=== PATIENT | female | born 1985 | race Caucasian/White ===

== ENCOUNTER 2017-11-04 17:05 | Inpatient (IN) | payer OTHER ==
[~2017-11-04] VITALS: Ht 160 cm; Wt 64.1 kg
[~2017-11-04 17:05] MED LIST: IBUP-1222 PO; OXYC-302 PO
[2017-11-04 18:02] LABS: MICROSCOPIC INDICATED
[2017-11-04 18:11] VITALS: BP 119/65
[2017-11-04] MEDS: LACTATED RINGERS 1,000 ML IV SCH (20:02)
[2017-11-04 20:09] LABS: BASOPHILS # (AUTO) 0.15 x10^3/uL (0-0.1); BASOPHILS % (AUTO) 1 % (0-1); EOSINOPHILS # (AUTO) 0.03 x10^3/uL (0-0.4); EOSINOPHILS % (AUTO) 0 % (1-7); LYMPHOCYTES # (AUTO) 1.42 x10^3/uL (1-3.4); LYMPHOCYTES % (AUTO) 9 % (22-44); MD NO; MEAN CORPUSCULAR HEMOGLOBIN 31.1 pg (27.0-34.8); MEAN CORPUSCULAR HGB CONC 34.8 g/dL (32.4-35.8); MEAN CORPUSCULAR VOLUME 89.4 fL (80-100); MEAN PLATELET VOLUME 9.4 fL (7.4-10.4); MONOCYTES # (AUTO) 0.67 x10^3/uL (0.2-0.8); MONOCYTES % (AUTO) 4 % (2-9); NEUTROPHILS # (AUTO) 13.62 x10^3/uL (1.8-6.8); NEUTROPHILS % (AUTO) 86 % (42-75); PLATELET COUNT 189 x10^3/uL (130-400); RED BLOOD COUNT 3.79 x10^6/uL (3.82-5.3); RED CELL DISTRIBUTION WIDTH 12.9 % (9.6-15.2)
[2017-11-04] MEDS: AMPICILLIN 2 GM in SODIUM CHLORIDE 0.9% 100 ML IV SCH (20:09)
[2017-11-04] MEDS ORDERED: ACETAMINOPHEN 325 MG TABLET PO PRN (22:30)
[2017-11-04] MEDS ORDERED: ZOLPIDEM 5MG TABLET PO PRN (22:30)
[2017-11-04] MEDS ORDERED: ACETAMINOPHEN 325 MG TABLET ONE (22:32)
[2017-11-04] MEDS: GUAIFENESIN/DM 200-20MG, 10ML UDC PO PRN (22:40)
[2017-11-05] MEDS: LACTATED RINGERS 1,000 ML IV SCH ×2 (01:05→08:05)
[2017-11-05] MEDS: AMPICILLIN 2 GM in SODIUM CHLORIDE 0.9% 100 ML IV SCH ×6 (05:10→20:29)
[2017-11-05 07:28] VITALS: BP 98/55
[2017-11-05] MEDS ORDERED: CLINDAMYCIN PMX 900MG/50ML 50 ML ONE ×2 (09:56→18:45)
[2017-11-05] MEDS: CLINDAMYCIN PMX 900MG/50ML 50 ML IV SCH ×2 (09:59→18:47)
[2017-11-05] MEDS ORDERED: GENTAMICIN 0 MG in SODIUM CHLORIDE 0.9% 100 ML IV SCH (10:00)
[2017-11-05] MEDS ORDERED: GENTAMICIN PER PHARMACY MC PRN (10:00)
[2017-11-05] MEDS ORDERED: PHARMACOKINETIC CONSULTATION MC ONE (10:30)
[2017-11-05] MEDS ORDERED: PHARMACOKINETIC MONITORING MC PRN (10:30)
[2017-11-05] MEDS: GENTAMICIN 300 MG in SODIUM CHLORIDE 0.9% 100 ML IV SCH (11:16)
[2017-11-05] MEDS ORDERED: FENTANYL PF 100 MCG/2ML ONE (14:43)
[2017-11-05] MEDS: FENTANYL PF 100 MCG/2ML IV PRN (14:46)
[2017-11-05] MEDS ORDERED: FENTANYL PF 100 MCG/2ML IVPush PRN (15:00)
[2017-11-05] MEDS: GUAIFENESIN/DM 200-20MG, 10ML UDC PO PRN (19:27)
[2017-11-06] MEDS ORDERED: OXYTOCIN 30U/ 0.9% NaCL 500ML 500 ML IV ONE (00:11)
[2017-11-06] MEDS ORDERED: OXYTOCIN 30U/ 0.9% NaCL 500ML 500 ML IV PRN (00:11)
[2017-11-06] MEDS ORDERED: MISOPROSTOL 25 MCG TABLET ONE (00:20)
[2017-11-06] MEDS ORDERED: MISOPROSTOL 25 MCG TABLET VG SCH (00:30)
[2017-11-06] MEDS ORDERED: OXYcodone/APAP 5/325MG TABLET PO PRN ×3 (00:30→06:30)
[2017-11-06] MEDS ORDERED: MISOPROSTOL 200 MCG TABLET PR PRN ×2 (00:30→06:30)
[2017-11-06] MEDS ORDERED: CALCIUM CARBONATE 500 MG TAB.CHEW PO PRN (00:30)
[2017-11-06] MEDS ORDERED: ONDANSETRON 2MG/ML, 2ML IVPush PRN (00:30)
[2017-11-06] MEDS: AMPICILLIN 2 GM in SODIUM CHLORIDE 0.9% 100 ML IV SCH ×3 (00:30→08:04)
[2017-11-06] MEDS: LACTATED RINGERS 1,000 ML IV SCH (02:22)
[2017-11-06] MEDS ORDERED: CLINDAMYCIN PMX 900MG/50ML 50 ML ONE ×2 (02:25→09:53)
[2017-11-06] MEDS: CLINDAMYCIN PMX 900MG/50ML 50 ML IV SCH ×2 (02:29→09:57)
[2017-11-06] MEDS ORDERED: FENTANYL PF 100 MCG/2ML ONE ×2 (03:31→05:01)
[2017-11-06] MEDS: FENTANYL PF 100 MCG/2ML IV PRN ×2 (03:34→05:03)
[2017-11-06] MEDS ORDERED: IBUPROFEN 600 MG TABLET ONE (06:22)
[2017-11-06] MEDS ORDERED: OXYTOCIN 30U/ 0.9% NaCL 500ML 500 ML IV SCH (06:23)
[2017-11-06] MEDS ORDERED: METHYLERGONOVINE 0.2 MG/ML IM PRN (06:30)
[2017-11-06] MEDS ORDERED: ONDANSETRON 2MG/ML, 2ML IV PRN (06:30)
[2017-11-06] MEDS ORDERED: GLYCERIN ADULT SUPP PR PRN (06:30)
[2017-11-06] MEDS ORDERED: BISACODYL 10 MG SUPP PR PRN (06:30)
[2017-11-06] MEDS ORDERED: DOCUSATE 100 MG CAPSULE PO PRN (06:30)
[2017-11-06] MEDS ORDERED: CARBOPROST TROMETHAMINE 250 MCG/ML, 1ML IM PRN (06:30)
[2017-11-06] MEDS ORDERED: ACETAMINOPHEN 325 MG TABLET PO PRN (06:30)
[2017-11-06] MEDS ORDERED: METOCLOPRAMIDE 5 MG/ML, 2ML IV PRN (06:30)
[2017-11-06] MEDS ORDERED: IBUPROFEN 600 MG TABLET PO PRN (06:30)
[2017-11-06] MEDS ORDERED: IBUPROFEN 800 MG TABLET PO PRN (06:30)
[2017-11-06] MEDS ORDERED: PRENATAL VIT/IRON/FA 1 EACH TABLET PO SCH (09:00)
[2017-11-06 09:34] LABS: MEAN CORPUSCULAR HEMOGLOBIN 30.4 pg (27.0-34.8); MEAN CORPUSCULAR HGB CONC 33.7 g/dL (32.4-35.8); MEAN CORPUSCULAR VOLUME 90.1 fL (80-100); MEAN PLATELET VOLUME 9.2 fL (7.4-10.4); PLATELET COUNT 174 x10^3/uL (130-400); RED BLOOD COUNT 3.69 x10^6/uL (3.82-5.3); RED CELL DISTRIBUTION WIDTH 12.6 % (9.6-15.2)
[2017-11-06 09:52] LABS: BASOPHILS # (AUTO) 0.02 x10^3/uL (0-0.1); BASOPHILS % (AUTO) 0 % (0-1); EOSINOPHILS # (AUTO) 0.02 x10^3/uL (0-0.4); EOSINOPHILS % (AUTO) 0 % (1-7); LYMPHOCYTES # (AUTO) 1.31 x10^3/uL (1-3.4); LYMPHOCYTES % (AUTO) 7 % (22-44); MD SCAN; MONOCYTES # (AUTO) 0.48 x10^3/uL (0.2-0.8); MONOCYTES % (AUTO) 2 % (2-9); NEUTROPHILS % (AUTO) 91 % (42-75)
[2017-11-06] MEDS: GENTAMICIN 300 MG in SODIUM CHLORIDE 0.9% 100 ML IV SCH (11:22)
== END 2017-11-06 14:10 | disposition home or self-care (01) | DRG 775 ==
LOC: LDOP 17:05 → LDIP 18:56 → OBSVTOIN 18:56 → LDIP 11-05 19:37
PROVIDERS: ADMIT Obstetrics & Gynecology Gynecology; ATTEND Obstetrics & Gynecology Gynecology
PROC: 10E0XZZ Delivery of Products of Conception, External Approach (ICD-10-PCS; principal; 2017-11-06)
DX: O42.912 Preterm premature rupture of membranes, unspecified as to length of time between rupture and onset of labor, second trimester (principal); O41.1220 Chorioamnionitis, second trimester, not applicable or unspecified; O36.4XX0 Maternal care for intrauterine death, not applicable or unspecified; Z3A.20 20 weeks gestation of pregnancy
CPT/HCPCS: 36415; 81001; 85025; 87086; 88305; 89060; J0290; J3010; G0378; J1580; J7120; Q0114

== ENCOUNTER 2019-07-15 01:55 | Inpatient (IN) | payer OTHER ==
[~2019-07-15] VITALS: Ht 160 cm; Wt 73.6 kg
[2019-07-15] MEDS ORDERED: OXYTOCIN 30U/ 0.9% NaCL 500ML 500 ML IV ONE (02:22)
[2019-07-15] MEDS ORDERED: LACTATED RINGERS 1,000 ML IV SCH (02:22)
[2019-07-15] MEDS ORDERED: NEWBORN KIT ONE (02:23)
[2019-07-15] MEDS ORDERED: OXYTOCIN 30U/ 0.9% NaCL 500ML 500 ML ONE (02:24)
[2019-07-15] MEDS ORDERED: FENTANYL PF 100 MCG/2ML IVPush PRN (02:30)
[2019-07-15] MEDS ORDERED: ONDANSETRON 2MG/ML, 2ML IVPush PRN (02:30)
[2019-07-15] MEDS ORDERED: FENTANYL PF 100 MCG/2ML IV PRN (02:30)
[2019-07-15] MEDS ORDERED: TERBUTALINE 1 MG/ML, 1ML IVPush PRN (02:30)
[2019-07-15] MEDS ORDERED: TERBUTALINE 1 MG/ML, 1ML SQ PRN (02:30)
[2019-07-15] MEDS ORDERED: SODIUM CHLORIDE FLUSH 10ML SYR IVF PRN (02:30)
[2019-07-15] MEDS ORDERED: PLEASE ENTER HEIGHT AND WEIGHT MC SCH (03:00)
[2019-07-15 03:14] LABS: BASOPHILS # (AUTO) 0.06 x10^3/uL (0-0.1); BASOPHILS % (AUTO) 1 % (0-1); EOSINOPHILS # (AUTO) 0.06 x10^3/uL (0-0.4); EOSINOPHILS % (AUTO) 1 % (1-7); LYMPHOCYTES # (AUTO) 2.15 x10^3/uL (1-3.4); LYMPHOCYTES % (AUTO) 28 % (22-44); MD SCAN; MEAN CORPUSCULAR HEMOGLOBIN 30.5 pg (27.0-34.8); MEAN CORPUSCULAR HGB CONC 32.9 g/dL (32.4-35.8); MEAN CORPUSCULAR VOLUME 92.8 fL (80-100); MEAN PLATELET VOLUME 13.7 fL (7.4-10.4); MONOCYTES # (AUTO) 0.45 x10^3/uL (0.2-0.8); MONOCYTES % (AUTO) 6 % (2-9); NEUTROPHILS # (AUTO) 5.05 x10^3/uL (1.8-6.8); NEUTROPHILS % (AUTO) 65 % (42-75); PLATELET COUNT 113 x10^3/uL (130-400); RED BLOOD COUNT 4.02 x10^6/uL (3.82-5.3); RED CELL DISTRIBUTION WIDTH 14.3 % (9.6-15.2)
[2019-07-15] MEDS ORDERED: PREN1TAB60 PO (03:52)
[2019-07-15] MEDS ORDERED: FENTANYL PF 100 MCG/2ML ONE (08:55)
[2019-07-15] MEDS ORDERED: METHYLERGONOVINE 0.2 MG/ML IM PRN (09:30)
[2019-07-15] MEDS: OXYTOCIN 30U/ 0.9% NaCL 500ML 500 ML IV SCH ×3 (09:30→21:07)
[2019-07-15] MEDS ORDERED: DOCUSATE 100 MG CAPSULE PO PRN (09:30)
[2019-07-15] MEDS ORDERED: MISOPROSTOL 200 MCG TABLET PR PRN (09:30)
[2019-07-15] MEDS ORDERED: ACETAMINOPHEN 325 MG TABLET PO PRN (09:30)
[2019-07-15] MEDS ORDERED: OXYcodone/APAP 5/325MG TABLET PO PRN ×2 (09:30)
[2019-07-15] MEDS ORDERED: DIPH,PERTUSS(ACELL),TET VAC/PF NC IM-VACC PRN (09:30)
[2019-07-15] MEDS ORDERED: SIMETHICONE 80 MG CHEW TAB PO PRN (09:30)
[2019-07-15] MEDS ORDERED: CARBOPROST TROMETHAMINE 250 MCG/ML, 1ML IM PRN (09:30)
[2019-07-15] MEDS ORDERED: IBUPROFEN 600 MG TABLET ONE (10:03)
[2019-07-15] MEDS: IBUPROFEN 600 MG TABLET PO PRN ×2 (10:03→17:27)
[2019-07-15 11:30] VITALS: BP 119/68
[2019-07-15 16:50] VITALS: BP 118/79
[2019-07-15 17:44] LABS: BASOPHILS # (AUTO) 0.04 x10^3/uL (0-0.1); BASOPHILS % (AUTO) 0 % (0-1); EOSINOPHILS # (AUTO) 0.13 x10^3/uL (0-0.4); EOSINOPHILS % (AUTO) 1 % (1-7); LYMPHOCYTES # (AUTO) 1.73 x10^3/uL (1-3.4); LYMPHOCYTES % (AUTO) 13 % (22-44); MD SCAN; MEAN CORPUSCULAR HEMOGLOBIN 31.7 pg (27.0-34.8); MEAN CORPUSCULAR HGB CONC 33.5 g/dL (32.4-35.8); MEAN CORPUSCULAR VOLUME 94.7 fL (80-100); MEAN PLATELET VOLUME 14.3 fL (7.4-10.4); MONOCYTES # (AUTO) 0.56 x10^3/uL (0.2-0.8); MONOCYTES % (AUTO) 4 % (2-9); NEUTROPHILS # (AUTO) 11.13 x10^3/uL (1.8-6.8); NEUTROPHILS % (AUTO) 82 % (42-75); PLATELET COUNT 108 x10^3/uL (130-400); RED BLOOD COUNT 4.27 x10^6/uL (3.82-5.3); RED CELL DISTRIBUTION WIDTH 13.9 % (9.6-15.2)
[2019-07-15 19:55] VITALS: BP 113/67
[2019-07-16 00:07] VITALS: BP 107/66
[2019-07-16] MEDS: IBUPROFEN 600 MG TABLET PO PRN ×2 (01:09→07:45)
[2019-07-16 04:17] VITALS: BP 115/77
[2019-07-16 07:46] VITALS: BP 116/78
[2019-07-16] MEDS ORDERED: PRENATAL VIT/IRON/FA 1 EACH TABLET PO SCH (09:00)
[2019-07-16] MEDS ORDERED: IBUP-1223 PO (12:14)
== END 2019-07-16 14:15 | disposition home or self-care (01) | DRG 807 ==
LOC: LDOP 01:55 → LDIP 02:23 → 2NW 11:05
PROVIDERS: ADMIT Obstetrics & Gynecology Maternal & Fetal Medicine; ATTEND Obstetrics & Gynecology Maternal & Fetal Medicine
PROC: 10E0XZZ Delivery of Products of Conception, External Approach (ICD-10-PCS; principal; 2019-07-15)
PROC: 10907ZC Drainage of Amniotic Fluid, Therapeutic from Products of Conception, Via Natural or Artificial Opening (ICD-10-PCS; 2019-07-15)
DX: O80 Encounter for full-term uncomplicated delivery (principal); Z37.0 Single live birth; Z3A.37 37 weeks gestation of pregnancy; Z88.8 Allergy status to other drugs, medicaments and biological substances
CPT/HCPCS: 36415; 82962; 85025; 86850; 86900; G0378; J3010; J2590; J7120